=== PATIENT | female | born 2000 | race African-American/Black ===

== ENCOUNTER 2024-05-13 14:39 | Emergency (ER) | payer OTHER, BC ==
[~2024-05-13] VITALS: Ht 167.6 cm; Wt 92.0 kg
[2024-05-13 14:42] VITALS: O2SAT 100
[2024-05-13] MEDS: METOCLOPRAMIDE HCL 10MG/2ML VIAL IV STA (14:42)
[2024-05-13] MEDS: SODIUM CHLORIDE 0.9% 1,000 ML IV ONE (14:45)
[2024-05-13 15:52] LABS: HEMATOCRIT. 35.8 % (36.0-48.0); HEMOGLOBIN. 12.2 g/dL (12.0-16.0); MEAN CORPUSCULAR HEMOGLOBIN 32.6 pg (28.0-32.0); MEAN CORPUSCULAR HGB CONC 34.2 g/dL (31.0-37.0); MEAN CORPUSCULAR VOLUME 95.4 fL (81.0-99.0); MEAN PLATELET VOLUME 8.8 fl (7.4-10.4); PLATELET 238 x1000/uL (130-400); RED BLOOD CELL COUNT 3.75 mill/uL (4.2-5.4); RED CELL DISTRIBUTION WIDTH 12.3 % (11.6-14.6); WHITE BLOOD COUNT 6.6 x1000/uL (4.5-11.0)
[2024-05-13 15:54] LABS: DIFFERENTIAL COMMENT 1
[2024-05-13 16:00] LABS: PROTHROMBIN TIME 10.8 sec (9.6-11.0)
[2024-05-13 16:01] LABS: CARBON DIOXIDE 20 mEq/L (21-32); CHLORIDE 107 mEq/L (98-107); POTASSIUM 3.3 mEq/L (3.5-5.1); SODIUM 137 mEq/L (136-145)
[2024-05-13 16:02] LABS: CALCIUM 9.4 mg/dL (8.7-10.4)
[2024-05-13 16:07] LABS: CREATININE 0.6 mg/dL (0.6-1.0); GLUCOSE 101 mg/dL (70-105); UREA NITROGEN BLOOD 8 mg/dL (9-23)
[2024-05-13 16:08] LABS: ALANINE AMINOTRANSFERASE 40 IU/L (10-49)
[2024-05-13 16:09] LABS: ALBUMIN 4.2 g/dL (3.2-4.8); ASPARTATE AMINOTRANSFERASE 27 IU/L (<34); BILIRUBIN DIRECT 0.2 mg/dL (<=3.0); BILIRUBIN TOTAL 0.6 mg/dL (0.1-1.0); PROTEIN TOTAL 7.2 g/dL (6.0-8.3)
[2024-05-13 16:47] LABS: PLATELET ESTIMATE NORMAL
[2024-05-13 17:48] LABS: CLARITY URINE CLEAR (CLEAR); COLOR URINE YELLOW (YELLOW); GLUCOSE URINE NEGATIVE (NEGATIVE); KETONES URINE 2+ (NEGATIVE); LEUKOCYTE ESTERASE URINE NEGATIVE (NEGATIVE); NITRITE URINE NEGATIVE (NEGATIVE); OCCULT BLOOD URINE NEGATIVE (NEGATIVE); PROTEIN URINE TRACE (NEGATIVE); SPECIFIC GRAVITY URINE 1.033 (1.005-1.030)
[2024-05-13 18:11] LABS: BACTERIA URINE NONE SEEN; RBC URINE NONE SEEN /hpf (0-2); SQUAMOUS EPITHELIAL CELL URINE FEW /lpf (RARE/1+); WBC URINE 0-2 /hpf (0-2)
[2024-05-13] MEDS ORDERED: METO-293 MT (18:38)
[2024-05-13 18:47] VITALS: BP 109/66; PULSE 65; RESP 20; TEMP 36.55848; O2SAT 99
== END 2024-05-13 19:38 | disposition home or self-care (01) ==
LOC: ER 14:39
DX: O26.892 Other specified pregnancy related conditions, second trimester (principal); K52.9 Noninfective gastroenteritis and colitis, unspecified; Z3A.14 14 weeks gestation of pregnancy
CPT/HCPCS: 80076; 80048; 81003; 84702; 83690; 85025; 85610; 36415; 76801; 76817; 96361; 96374; 99285; J2765; J7030; Z7610 ×4